=== PATIENT | female | born 1985 | race Hispanic/Latino ===

== ENCOUNTER 2017-06-16 14:42 | Emergency (ER) | payer OTHER | END 2017-06-16 16:28 | disposition home or self-care (01) | LOC: EDH 14:42 | DX: L03.114 Cellulitis of left upper limb (principal); J06.9 Acute upper respiratory infection, unspecified; Z98.51 Tubal ligation status | CPT/HCPCS: 87804 ==

== ENCOUNTER 2017-09-20 18:28 | Emergency (ER) | payer OTHER ==
[2017-09-20] MEDS ORDERED: IBUPROFEN 800 MG TAB ONE (19:32)
== END 2017-09-20 20:05 | disposition home or self-care (01) ==
LOC: EDH 18:28
DX: S76.211A Strain of adductor muscle, fascia and tendon of right thigh, initial encounter (principal); Z86.14 Personal history of Methicillin resistant Staphylococcus aureus infection; Z98.51 Tubal ligation status; X58.XXXA Exposure to other specified factors, initial encounter; Y93.89 Activity, other specified; Y92.89 Other specified places as the place of occurrence of the external cause; Y99.8 Other external cause status
CPT/HCPCS: 73521; 81025